=== PATIENT | male | born 1940 | race Caucasian/White ===

== ENCOUNTER 2018-12-02 06:37 | Observation (INO) | payer OTHER ==
[~2018-12-02] VITALS: Ht 177.8 cm; Wt 95.2 kg
[~2018-12-02 06:37] MED LIST: ALLO300 PO; ASPI81CH PO; ATOR20 PO; Flomax0.4 MG PO; Lopressor 50 mg50 MG PO; Norco 10-325 T1 EACH PO; Zofran Odt4 MG SL
[2018-12-02 07:30] LABS: BASOPHILS ABSOLUTE AUTO 0.03 K/mm3 (0.00-0.23); BASOPHILS PERCENT AUTO 0 % (0-2); EOSINOPHILS ABSOLUTE AUTO 0.05 K/mm3 (0.00-0.68); EOSINOPHILS PERCENT AUTO 1 % (0-6); Hematocrit 40.6 % (37.0-53.0); IMMATURE GRAN ABSOLUTE AUTO 0.03 K/mm3 (0.00-0.10); IMMATURE GRAN PERCENT AUTO 0 % (0-1); LYMPHOCYTES ABSOLUTE AUTO 0.65 K/mm3 (0.84-5.20); LYMPHOCYTES PERCENT AUTO 7 % (21-46); MONOCYTES ABSOLUTE AUTO 0.76 K/mm3 (0.16-1.47); MONOCYTES PERCENT AUTO 8 % (4-13); Mean Corpuscular HGB 34.4 pg (26.0-34.0); Mean Corpuscular HGB Conc 34.5 g/dL (31.5-36.5); Mean Corpuscular Volume 100 fL (80-100); Mean Platelet Volume 8.8 fL (9.1-12.4); NEUTROPHILS ABSOLUTE AUTO 7.67 K/mm3 (1.96-9.15); NEUTROPHILS PERCENT AUTO 84 % (41-73); Platelet Count 189 K/mm3 (150-400); RDW Coefficient Variation 12.5 % (11.7-14.2); RDW Standard Deviation 45.4 fL (35.1-46.3); Red Blood Cell Count 4.07 M/mm3 (4.30-5.90); White Blood Cell Count 9.19 K/mm3 (4.00-11.30)
[2018-12-02 07:40] LABS: Bun/Creatinine Ratio 13.5 (12.0-20.0); Calcium, Blood 8.6 mg/dL (8.5-10.1); Creatinine, Blood 1.48 mg/dL (0.60-1.20); Potassium, Blood 4.3 mmol/L (3.5-5.5)
--- NOTE | 2018-12-02 11:46 | NUR ---
PT. ARRIVED TO ROOM VIA [facility] FROM . TRANSFERRE SELF TO BED FROM [facility].
--- NOTE | 2018-12-02 18:23 | NUR ---
PT. SITTING IN BED, ATE MOST OF HIS DINNER, THONG WELL. PT. UP AND TO THE BATHROOM INDEPENDANTLY. PT. HAS DENIED PAIN SINCE COMING TO THE FLOOR. PT. VOIDING YENNY-COLORED URINE AT 200 CC EACH TIME, EACH VOID HAS GOTTEN [facility] REGISTERED NURSE IN COLOR. PT. IS TO BE NPO AFTER MIDNIGHT TONIGHT FOR PLACEMENT OF UROSOTOMY TUBES IN AM. WAS NOTIFIED BY [facility] THEY WILL BE PICKING HIM UP AT 0730 IN AM 12/03/18. PT. PLEASANT & COOPERATIVE. NO NOTEABLE CHANGES THIS SHIFT.
[2018-12-03 05:27] LABS: Calcium, Blood 8.4 mg/dL (8.5-10.1); Creatinine, Blood 1.4 mg/dL (0.60-1.20); Potassium, Blood 4.2 mmol/L (3.5-5.5)
--- NOTE | 2018-12-03 06:12 | NUR ---
Pt slept well overnight with no c/o discomfort. Voiding qs urine s problems. Pt readied for possible urostomy tube placement this am. Consent on chart but has not been signed . Pt npo p midnight..
--- NOTE | 2018-12-03 12:19 | NUR ---
PATIENT DISCHARGE THE PATIENT WAS DISCHARGED HOME WITH HIS SPOUSE, AFTER DISCHARGE INSTRUCTIONS WERE GIVEN TO THE PATIENT. THE PATIENT WAS INSTRUCTED TO FOLLOW UP WITH HIS PCP TOMORROW, AND WITH AN URLOGIST IN 3 - 5 DAYS. THE PATIENT WAS GIVEN A PRESCRIPTION FOR PAIN MEDICATION TO HAVE FILLED. THE PATIENT LEFT THE HOSPITAL WITHOUT CONCERN OR COMPLAINT.
== END 2018-12-03 12:11 | disposition home or self-care (01) ==
LOC: ER 06:37 → MEDS 06:38
PROVIDERS: Emergency Medicine; ADMIT Family Medicine
DX: N13.2 Hydronephrosis with renal and ureteral calculous obstruction (principal); N17.9 Acute kidney failure, unspecified; I10 Essential (primary) hypertension; I25.10 Atherosclerotic heart disease of native coronary artery without angina pectoris; I25.2 Old myocardial infarction; M10.9 Gout, unspecified; E78.5 Hyperlipidemia, unspecified; E87.1 Hypo-osmolality and hyponatremia; F17.210 Nicotine dependence, cigarettes, uncomplicated; Z79.899 Other long term (current) drug therapy; Z79.82 Long term (current) use of aspirin; Z85.51 Personal history of malignant neoplasm of bladder; Z90.79 Acquired absence of other genital organ(s); Z90.49 Acquired absence of other specified parts of digestive tract; Z98.890 Other specified postprocedural states; Z90.89 Acquired absence of other organs; Z93.6 Other artificial openings of urinary tract status
CPT/HCPCS: 36415; 50432; 74176; 80048; 85025; 96361; 96374; 96375; 99152; 99153; 99285-25; C1729; C1769; G0378; J1170; J1885; J2250; J2405; J3010; J7030; J7040; Q9967

== ENCOUNTER 2018-12-05 12:53 | Emergency (ER) | payer OTHER ==
[~2018-12-05] VITALS: Ht 177.8 cm; Wt 96.2 kg
== END 2018-12-05 14:54 | disposition home or self-care (01) ==
LOC: ER 12:53
DX: N99.522 Malfunction of incontinent external stoma of urinary tract (principal); Z79.82 Long term (current) use of aspirin; Z79.899 Other long term (current) drug therapy; I10 Essential (primary) hypertension; E78.5 Hyperlipidemia, unspecified; I25.2 Old myocardial infarction; Z87.891 Personal history of nicotine dependence
CPT/HCPCS: 99282

== ENCOUNTER 2019-05-21 10:12 | Day surgery (SDC) | payer OTHER ==
[~2019-05-21] VITALS: Ht 177.8 cm; Wt 97.1 kg
== END 2019-05-21 12:56 | disposition home or self-care (01) ==
LOC: ORSCSDS 10:12
PROVIDERS: Internal Medicine Gastroenterology
PROC: 0DBH8ZX Excision of Cecum, Via Natural or Artificial Opening Endoscopic, Diagnostic (ICD-10-PCS; principal; 2019-05-21 11:30)
PROC: 0DBL8ZX Excision of Transverse Colon, Via Natural or Artificial Opening Endoscopic, Diagnostic (ICD-10-PCS; principal; 2019-05-21 11:30)
PROC: 0DBM8ZX Excision of Descending Colon, Via Natural or Artificial Opening Endoscopic, Diagnostic (ICD-10-PCS; principal; 2019-05-21 11:30)
PROC: 0DBK8ZX Excision of Ascending Colon, Via Natural or Artificial Opening Endoscopic, Diagnostic (ICD-10-PCS; principal; 2019-05-21 11:30)
DX: Z12.11 Encounter for screening for malignant neoplasm of colon (principal); Z86.010 Personal history of colon polyps; D12.0 Benign neoplasm of cecum; D12.2 Benign neoplasm of ascending colon; D12.3 Benign neoplasm of transverse colon; D12.4 Benign neoplasm of descending colon; K64.8 Other hemorrhoids; K57.30 Diverticulosis of large intestine without perforation or abscess without bleeding; I10 Essential (primary) hypertension; E78.5 Hyperlipidemia, unspecified; I25.10 Atherosclerotic heart disease of native coronary artery without angina pectoris; Z87.891 Personal history of nicotine dependence; E66.9 Obesity, unspecified; Z68.30 Body mass index [BMI] 30.0-30.9, adult; Z79.82 Long term (current) use of aspirin; Z79.899 Other long term (current) drug therapy
CPT/HCPCS: 88305; J2704; J7120

== ENCOUNTER → 2021-01-23 | Outpatient (CLI) | payer OTHER | LOC: LAB SHORT 11:28 → PLD 11:28 | DX: C44.719 Basal cell carcinoma of skin of left lower limb, including hip (principal); D04.72 Carcinoma in situ of skin of left lower limb, including hip | CPT/HCPCS: 88305 ==

== ENCOUNTER 2021-12-19 06:22 | Day surgery (SDC) | payer OTHER ==
[~2021-12-19] VITALS: Ht 177.8 cm; Wt 85.4 kg
--- NOTE | 2021-12-19 08:10 | NUR ---
12/19/21 0810 ALEXANDRE GAYTAN PT DC VIA [facility] TO [facility]
== END 2021-12-19 08:09 | disposition home or self-care (01) ==
LOC: ORSCSDS 06:22
PROVIDERS: Ophthalmology
PROC: 08RJ3JZ Replacement of Right Lens with Synthetic Substitute, Percutaneous Approach (ICD-10-PCS; principal; 2021-12-19 07:30)
DX: H25.11 Age-related nuclear cataract, right eye (principal); H35.30 Unspecified macular degeneration; I10 Essential (primary) hypertension; E78.00 Pure hypercholesterolemia, unspecified; I25.2 Old myocardial infarction; Z79.82 Long term (current) use of aspirin; Z79.899 Other long term (current) drug therapy
CPT/HCPCS: J2001; J2250; J3010; J3301; J7040; V2632

== ENCOUNTER → 2023-01-01 | Outpatient (CLI) | payer OTHER ==
[2023-01-01 12:27] LABS: BASOPHILS ABSOLUTE AUTO 0.09 K/mm3 (0.00-0.23); BASOPHILS PERCENT AUTO 1 % (0-2); EOSINOPHILS ABSOLUTE AUTO 0.24 K/mm3 (0.00-0.68); EOSINOPHILS PERCENT AUTO 4 % (0-6); Hematocrit 36.1 % (37.0-53.0); Hemoglobin 12.5 g/dL (13.5-17.5); IMMATURE GRAN ABSOLUTE AUTO 0.02 K/mm3 (0.00-0.10); IMMATURE GRAN PERCENT AUTO 0 % (0-1); LYMPHOCYTES ABSOLUTE AUTO 1.59 K/mm3 (0.84-5.20); LYMPHOCYTES PERCENT AUTO 24 % (21-46); MONOCYTES PERCENT AUTO 7 % (4-13); Mean Corpuscular HGB 35.8 pg (26.0-34.0); Mean Corpuscular HGB Conc 34.6 g/dL (31.5-36.5); Mean Corpuscular Volume 103 fL (80-100); NEUTROPHILS ABSOLUTE AUTO 4.34 K/mm3 (1.96-9.15); NEUTROPHILS PERCENT AUTO 64 % (41-73); Platelet Count 125 K/mm3 (150-400); RDW Coefficient Variation 12.7 % (11.7-14.2); RDW Standard Deviation 47.8 fL (35.1-46.3); Red Blood Cell Count 3.49 M/mm3 (4.30-5.90); White Blood Cell Count 6.78 K/mm3 (4.00-11.30)
[2023-01-01 15:12] LABS: Alanine Aminotransfer (ALT/SGP 39 U/L (12-78); Albumin, Blood 3.7 g/dL (3.4-5.0); Albumin/Globulin Ratio 1.2 (0.8-1.8); Alk Phos 68 U/L (50-136); Anion Gap 6 mmol/L (6-16); Aspartate Aminotrans (AST/SGOT 44 U/L (12-37); Blood Urea Nitrogen 17 mg/dL (8-24); Bun/Creatinine Ratio 19.9 (12.0-20.0); CHOL/HDL RATIO 1.9; CO2, Blood 27 mmol/L (21-32); Calcium, Blood 8.9 mg/dL (8.5-10.1); Chloride, Blood 108 mmol/L (98-108); Cholesterol 128 mg/dL (50-200); Creatinine, Blood 0.85 mg/dL (0.60-1.20); Globulin, Blood 3.1 g/dL (2.2-4.0); Glomerular Filtration Rate 88 (60-); Glucose, Blood 101 mg/dL (70-99); HDL Cholesterol 69 mg/dL (>39); LDL/HDL RATIO 0.4; Low Density Lipoprotein Chol 27 mg/dL (0-110); Sodium, Blood 141 mmol/L (136-145); Total Protein, Blood 6.8 g/dL (6.4-8.2); Triglycerides 160 mg/dL (30-160); Very Low Density Lipoprot Chol 32 mg/dL (6-32)
[2023-01-02 11:07] LABS: Percent Saturation 56.5 % (20.0-50.0)
== END ==
LOC: LAB SHORT 07:35 → LAB 07:35
PROVIDERS: Internal Medicine
DX: E78.5 Hyperlipidemia, unspecified (principal); I13.10 Hypertensive heart and chronic kidney disease without heart failure, with stage 1 through stage 4 chronic kidney disease, or unspecified chronic kidney disease; R73.9 Hyperglycemia, unspecified; E61.1 Iron deficiency; E53.8 Deficiency of other specified B group vitamins
CPT/HCPCS: 80053; 80061; 82607; 82728; 82746; 83036; 83540; 83550; 85025